=== PATIENT | female | born 1980 | race African-American/Black ===

== ENCOUNTER 2017-04-29 11:47 | Emergency (ER) | payer OTHER ==
--- NOTE | ~2017-04-29 | EKG ---
PATIENT: SAKSHI NIEVES UNIT #: [id number] Ventricular Rate: 51 BPM Atrial Rate: 51 BPM P-R Interval: 178 ms QRS Duration: 82 ms Q-T Interval: 458 ms QTC Calculation(Bezet): 422 ms P Carson: 9 degrees Calculated R Carson: 17 degrees Calculated T Carson: 34 degrees Diagnosis Line: Sinus bradycardia Diagnosis Line: Low voltage QRS Diagnosis Line: Borderline ECG Diagnosis Line: When compared with ECG of 12-NOV-2016 19:54, Diagnosis Line: No significant change was found Diagnosis Line: Confirmed by RACH ROBERTS MD ([id number]) on 04/30/2017 Diagnosis Line: 7:35:01 AM INTERPRETING MD: ALEJANDRA ANTON
--- NOTE | ~2017-04-29 | CR72 ---
[facility] A Service of [facility] & [facility] RADIOLOGY TEXT RESULTS PATIENT: SAKSHI NIEVES LOCATION: [facility] : 78 UNIT #: [id number] AGE: [address]: Andres Huertas MD SEX: F ORDER DR: [id number] [facility] [address] [place], [place] [address] [id number] E MR#: [id number] #: [id number] NAME: SAKSHI NIEVES : 1980 SEX: F STUDY DATE/TIME: 04/29/2017 15:46 UNIT: [facility] ROOM: STUDY DESCRIPTION: CR Chest Single View Portable Attending Physician: Andres Huertas M.D. Ordering Physician: Andres Huertas M.D. Primary Care Physician: No Primary Care Physician MEDICAL IMAGING REPORT This report is preliminary unless electronic signature is present EXAM Portable chest. INDICATIONS Chest pain and back pain today. COMPARISON Comparison with 11/12/16. FINDINGS Slight low-volume inspiration. No definite acute infiltrate. Heart size stable. IMPRESSION No active disease. Dictated by... Jann Noguera M.D. THIS IS AN ELECTRONICALLY VERIFIED REPORT Jann Noguera M.D. at 04/30/2017 8:16 AM CANDIDO/samuel TD: 04/29/2017 18:28 JOB #: [id number] MEDICAL IMAGING REPORT Page 1 of 1 COPY
[2017-04-29 14:13] LABS: BASOPHIL% 0.2 % (0-2.5); EOSINOPHIL# 0.1 X10e3 (0-0.7); HEMATOCRIT 39.5 % (35.0-45.0); HEMOGLOBIN 12.9 gm/dL (12.0-16.0); LYMPHOCYTE# 2.1 X10e3 (1.0-3.5); LYMPHOCYTE% 34.5 % (17.0-45.0); MEAN CELL VOLUME 84.1 FL (83-96); MEAN CORPUSCULAR HEMOGLOBIN 27.5 PG (28-34); MEAN CORPUSCULAR HGB CONC 32.7 g/dL (30-36); MEAN PLATELET VOLUME 10.9 FL (6.5-11.5); MONOCYTE# 0.4 X10e3 (0-1.0); MONOCYTE% 6.7 % (3.0-12.0); NEUTROPHIL# 3.4 X10e3 (1.5-7.1); NEUTROPHIL% 57.6 % (40-75); PLATELET COUNT 137 X10e3 (140-420); RED CELL DISTRIBUTION WIDTH 12.9 % (11.0-15.5)
[2017-04-29 14:16] LABS: DIFF IND NO
[2017-04-29 14:28] LABS: POC - CKMB <1.0 ng/mL (0.0-7.9); POC - TROPONIN <0.05 ng/mL (<=0.05)
[2017-04-29 15:08] LABS: URINE SOURCE CLEAN CATCH
[2017-04-29 15:15] LABS: URINE APPEARANCE CLEAR; URINE BILIRUBIN NEG (NEG); URINE BLOOD NEG (NEG); URINE COLOR YELLOW; URINE GLUCOSE NEG (NEG); URINE KETONE NEG (NEG); URINE LEUKOCYTE ESTERASE TRACE (NEG); URINE NITRATE NEG (NEG); URINE PH 5.5 (5-8); URINE PROTEIN NEG (NEG); URINE SPECIFIC GRAVITY 1.011 (1.003-1.035); URINE UROBILINOGEN 0.2 MG/DL (NEG)
[2017-04-29 15:19] LABS: URBCS1 AUWI 0-2 /[HPF] (0-2); URINE BACTERIA AUWI NEG (NEGATIVE); URINE SQUAMOUS EPITHELIAL CELL OCC /[HPF]; UWBCS1 AUWI 0-2 (0-5)
[2017-04-29 15:29] LABS: ALBUMIN SERUM 3.9 g/dL (3.5-5.0); ALKALINE PHOSPHATASE 59 U/L (32-92); ALT (SGPT) 18 U/L (10-40); AST (SGOT) 22 U/L (10-42); BILIRUBIN, DIRECT <0.1 mg/dL (0.0-0.2); BILIRUBIN,INDIRECT 0.5 mg/dL (0.0-0.9); BILIRUBIN,TOTAL 0.6 mg/dL (0.2-2.0); BLOOD UREA NITROGEN 8 mg/dL (9-23); CALCIUM SERUM 8.9 mg/dL (8.4-10.2); CARBON DIOXIDE 26 mmol/L (22-31); CHLORIDE 105 mmol/L (100-111); CPK (CREATINE PHOSPHOKINASE) 175 IU/L (26-140); CREATININE SERUM 0.8 mg/dL (0.6-1.4); GLOM FILT RATE Estimated 109.3 mL/min (>60); GLUCOSE FASTING 85 mg/dL (70-110); POTASSIUM 3.8 mmol/L (3.5-5.1); PROTEIN TOTAL SERUM 6.8 g/dL (6.0-8.3); SODIUM 136 mmol/L (135-145)
[2017-04-29 15:30] LABS: CULTURE INDICATED? NO
== END 2017-04-29 16:45 | disposition home or self-care (01) ==
LOC: CED 11:47 → CFTX 11:47 → CED 13:14
PROVIDERS: Emergency Medicine
DX: R52 Pain, unspecified (principal); J45.909 Unspecified asthma, uncomplicated; F17.200 Nicotine dependence, unspecified, uncomplicated
CPT/HCPCS: 36415; 71010; 80048; 80076; 81003; 82550; 82553; 82947; 84484; 84703; 85025; 93005; 96361; 96374; 99284; J1885